=== PATIENT | female | born 1960 | race African-American/Black ===

== ENCOUNTER 2017-03-06 21:08 | Emergency (ER) | payer BC ==
--- NOTE | ~2017-03-06 | CT71 ---
[facility] Service of [facility] RADIOLOGY TEXT RESULTS PATIENT: ROSELINE MERCADO LOCATION: [facility] : 56 UNIT #: [id number] AGE: [address]: Zena Terrazas SEX: F ORDER DR: [id number] [facility] [address] [place], [place] [address] [id number] E MR#: [id number] Acc #: [id number] NAME: ROSELINE MERCADO : 1960 SEX: F STUDY DATE/TIME: 03/06/2017 22:03 UNIT: [facility] ROOM: STUDY DESCRIPTION: CT Head Wo Contrast Attending Physician: Zena Terrazas Pa-C Ordering Physician: Donavon Palacios M.D. Primary Care Physician: Sarath Vasquez M.D. MEDICAL IMAGING REPORT This report is preliminary unless electronic signature is present EXAM CT brain without contrast HISTORY Fell and hit head and face today. Headache today. FINDINGS Axial noncontrast images were obtained from the skull base to the vertex. This CT examination was performed with one or more of the following radiation dose reduction techniques: automatic exposure control, adjustment of mA and/or kV according to patient size, and iterative reconstruction. Ventricular size and configuration are normal. There is no evidence of acute infarct or hemorrhage. There are no extra-axial fluid collections. No mass lesion or mass effect is seen. There are no skull fractures. IMPRESSION Normal noncontrast head CT. Dictated by... Ollie Demarco M.D. THIS IS AN ELECTRONICALLY VERIFIED REPORT Ollie Demarco M.D. at 03/07/2017 2:48 PM ALFONZO/sage TD: 03/07/2017 13:26 JOB #: [id number] MEDICAL IMAGING REPORT Page 1 of 1 COPY
--- NOTE | ~2017-03-06 | CT101 ---
[facility] A Service of [facility] RADIOLOGY TEXT RESULTS PATIENT: ROSELINE MERCADO LOCATION: [facility] : 56 UNIT #: [id number] AGE: [address]: Zena Terrazas SEX: F ORDER DR: [id number] [facility] [address] [place], [place] [address] [id number] E MR#: [id number] Acc #: [id number] NAME: ROSELINE MERCADO : 1960 SEX: F STUDY DATE/TIME: 03/06/2017 22:03 UNIT: [facility] ROOM: STUDY DESCRIPTION: CT Maxillofacial Area Wo Cont Attending Physician: Zena Terrazas Pa-C Ordering Physician: Ed Ariel Schwartz M.D. Primary Care Physician: Sarath Vasquez M.D. MEDICAL IMAGING REPORT This report is preliminary unless electronic signature is present EXAM CT scan of the facial bones without contrast. INDICATIONS Fall today with trauma to right side of face and pain below right eye and headache. TECHNIQUE Axial 2 mm images were obtained through the facial bones and coronal and sagittal reconstructions were generated. This CT exam was performed with one or more of the following radiation dose reduction techniques: automatic exposure control, adjustment of mA and/or kV according to patient size, and iterative reconstruction. FINDINGS No facial bone fractures are identified. There is a small hematoma in the right cheek with what is presumably some blood products measuring about 2.2 x 1.1 cm in the soft tissue and subcu. fat. There is no blowout fracture. IMPRESSION There is a small hematoma in the right cheek inferior to the orbit measuring about 2.2 cm in maximum dimension. There is no fracture and the study is otherwise normal. Dictated by... Jerson Chapman M.D. THIS IS AN ELECTRONICALLY VERIFIED REPORT Jerson Chapman M.D. at 03/07/2017 1:02 PM FEL/pc [facility] A Service of [facility] RADIOLOGY TEXT RESULTS PATIENT: ROSELINE MERCADO LOCATION: [facility] : 56 UNIT #: [id number] AGE: [address]: Zena Terrazas SEX: F ORDER DR: TD: 03/07/2017 12:56 JOB #: [id number] MEDICAL IMAGING REPORT Page 1 of 1 COPY
[~2017-03-06 21:08] MED LIST: FLEXERIL10 M1 PO; IBUPROFEN800 MG PO; VICODIN PO
== END 2017-03-06 22:45 | disposition home or self-care (01) ==
LOC: CFTX 21:08 → CED 21:08 → CFTX 22:19
DX: S00.83XA Contusion of other part of head, initial encounter (principal); E11.9 Type 2 diabetes mellitus without complications; Z88.0 Allergy status to penicillin; Z91.040 Latex allergy status; Z88.8 Allergy status to other drugs, medicaments and biological substances; X58.XXXA Exposure to other specified factors, initial encounter; Y92.9 Unspecified place or not applicable
CPT/HCPCS: 70450; 70486; 82947; 99284